=== PATIENT | female | born 2005 | race Caucasian/White ===

== ENCOUNTER 2025-01-14 22:37 | Emergency (ER) | payer SELFPAY ==
--- NOTE | ~2025-01-14 | CT_ITS ---
CLINICAL HISTORY: headache after syncope and head injury CT head without contrast COMPARISON: None FINDINGS: No acute intracranial hemorrhage, extra-axial fluid collection, mass effect, or midline shift. Ventricular system and basilar cisterns are patent. Walkre-white matter differentiation is maintained. No gross orbital abnormality. No suspicious or acute bone lesion. Mastoid air cells and paranasal sinuses are predominantly clear. IMPRESSION: 1. No acute intracranial abnormality. This document has been electronically signed by: Fransisco Mckenzie MD on 01/15/2025 01:13:04
--- NOTE | ~2025-01-14 | XR_ITS ---
CLINICAL HISTORY: cough and fever EXAM: One view chest x-ray COMPARISON: None FINDINGS: Normal cardiac, mediastinal, and hilar contours. Normal heart size. No pleural effusion or pneumothorax. Lungs are clear. No acute bone finding. IMPRESSION: 1. No acute cardiopulmonary process demonstrated. This document has been electronically signed by: Fransisco Mckenzie MD on 01/15/2025 01:09:09
[2025-01-14 22:43] VITALS: BP 112/60; PULSE 105; RESP 16; TEMP 36.7; O2SAT 96; BMI 25.8
--- NOTE | 2025-01-14 22:49 | ECG_ITS ---
Test Reason : SYNCOPE Blood Pressure : */* mmHG Vent. Rate : 95 BPM Atrial Rate : 95 BPM P-R Int : 142 ms QRS Dur : 86 ms QT Int : 358 ms P-R-T Axes : 58 58 56 degrees QTcB Int : 449 ms Normal sinus rhythm Normal ECG No previous ECGs available Referred By: Generic ED Physician Electronically Signed By: Vishnu Sanford
[2025-01-14 23:10] LABS: Hematocrit 39.5 % (37.0-47.0); Hemoglobin 12.8 g/dl (12.0-16.0); Imm Gran Abs Auto 0.09 X10*3/uL (0.00-0.03); Imm Gran Pct Auto 0.6 % (0.0-0.4); Lymphocytes Absolute Auto 1.0 X10*3/uL (1.2-4.9); Mean Corpuscular HGB Conc 32.4 g/dl (31.0-35.0); Mean Corpuscular Hemoglobin 27.7 pg (27.0-33.0); Mean Corpuscular Volume 85.5 fL (80.0-98.0); NRBC Abs Auto 0.000 X10*3/uL (0.0-0.012); NRBC Pct Auto 0.0 /100WBC (0.0-0.2); Platelet Count 344 X10*3/uL (160-400); Red Blood Count 4.62 X10*6/uL (4.20-5.50); White Blood Count 14.9 X10*3/uL (4.8-10.8)
[2025-01-14 23:24] LABS: IDNOW Serial# 6674DD1D; Strep A Nucleic Acid Negative (Negative)
[2025-01-14 23:28] LABS: IDNOW Serial# 152EDE1D; Influenza B2 Negative (Negative)
[2025-01-14 23:29] LABS: COVID-19 Test Negative (Negative); IDNOW Serial# 16C4AD1C
[2025-01-14 23:33] LABS: Alanine Aminotransferase 24 U/L (0-31); Albumin Level 4.3 g/dL (3.5-5.0); Alkaline Phosphatase 78 U/L (39-117); Anion Gap 14 (12-20); Aspartate Amino Transferase 31 U/L (5-31); Blood Urea Nitrogen 14 mg/dL (9-16); Calcium 9.1 mg/dL (8.4-10.2); Carbon Dioxide 22 mmol/L (22-29); Chloride 104 mmol/L (96-108); Creatinine Clr Calc Pharmacy 119.4; Estimated Glomerular Filt Rate > 60; Potassium 3.9 mmol/L (3.3-5.1); Sodium 136 mmol/L (135-145); Total Protein 7.4 g/dL (6.5-8.0)
[2025-01-14 23:36] LABS: Troponin-I High Sensitivity < 2.7 ng/L (<3.5-17.0)
[2025-01-14 23:42] VITALS: BP 107/61; BP 114/73; BP 98/67; PULSE 100
[2025-01-14 23:44] VITALS: BP 107/61; PULSE 100; RESP 18; O2SAT 99
--- NOTE | 2025-01-14 23:48 | ED_ITS ---
HPI - Syncope General Chief Complaint: Syncope Stated Complaint: passed out 1/2 ago/not feeling good all day Time Seen by Provider: 01/14/25 23:21 Source: patient and family Mode of arrival: ambulatory Limitations: no limitations History of Present Illness ED Provider: DR. Monique HPI narrative: a 19-year-old female came in for evaluation after passed out in the kitchen before arrival. Patient was not feeling well all day presented with runny nose, congestion, generalized body ache, sore throat, cough, subjective fever, decreased p.o. intake all day today, patient has been feeling dizzy passed out in the kitchen when she woke up found herself on the ground complaining of right temporal area pain likely struck her head when she fell. Fall was unwitnessed, patient stated was few minutes1. Periventricular white matter hypodensities, No chest pain, no shortness of breath, no abdominal pain, no vaginal bleeding, no chance of being . Related Data Allergies Allergy/AdvReac Type Severity Reaction Status Date / Time No Known Allergies Allergy Verified 01/14/25 22:46 Review of Systems 2 Review of Systems: All other systems are reviewed and are negative Constitutional: Reports as per HPI and Reports no additional constitutional complaints Eyes: Reports as per HPI and Reports no additional eye complaints Reports system reviewed and no additional complaints, except as documented Cardiovascular: Reports as per HPI and Reports no additional cardiovascular complaints Respiratory: Reports as per HPI and Reports no additional respiratory complaints Gastrointestinal: Reports as per HPI and Reports no additional gastrointestinal complaints Genitourinary: Reports no additional female genitourinary complaints Musculoskeletal: Reports no additional musculoskeletal complaints Skin/Breast: Reports system reviewed and no additional complaints, except as docu Psychiatric: Reports no additional psychiatric complaints Endocrine: Reports no additional endocrine complaints Hematologic/Lymphatic: Reports no additional hematologic/lymphatic complaints Allergic/Immunologic: Reports no additional allergic/immunologic complaints Reports system reviewed and no additional complaints, except as documented and Reports Abnormal speech present [facility] Social History Social History Alcohol intake: never Smoked in Last 30 Days: No Use of substances other than those prescribed or required for medical reasons: No Advance Directives: No Do you have a plan to hurt others: No Plan Physical Exam 2 Vital Signs: Vital Signs: Last Vital Signs Temp 98.1 F 01/15/25 00:07 Pulse 89 01/15/25 00:07 Resp 16 01/15/25 00:07 BP 109/69 01/15/25 00:07 Pulse Ox 98 01/15/25 00:07 O2 Del Method Room Air 01/15/25 00:07 BMI result Body Mass Index 25.8 Vital signs have been reviewed and appear to be correct. Blood pressure elevated. Heart rate normal. Respiratory rate normal. Temperature normal. Oxygen saturation normal. Appearance: Alert. Oriented X3. No acute distress. Head: Normal external exam. Normocephalic. Atraumatic. No Antonio signs noted. No raccoon eyes noted Eyes: PERRLA. EOMI. Conjunctiva and sclera normal. Eyelids normal. ENT: TM's Normal. Pharynx normal. Uvula midline. Moist mucous membranes. No trismus noted. No drooling noted. No muffled voice noted. Neck: Normal inspection. Neck supple. FROM. No adenopathy. Thyroid Normal. No meningeal signs. No neck mass noted. CVS: Normal heart rate and rhythm. Heart sound normal. No murmurs noted. Pulses normal throughout. Respiratory: No respiratory distress. Painless inspiration. Breath sounds normal. No wheezes/rales/rhonchi noted. Chest nontender. No accessory muscle usage noted or decreased air movement noted. Abdomen: Soft and nontender. Bowel sounds normal in all 4 quadrants. No distention noted. No organomegaly noted. No visible injury noted. Back: No CVA tenderness. Full range of motion noted. Skin: Skin warm and dry. Normal skin color. Normal skin turgor. No rashes/lesions/lacerations noted. Extremities: No lower extremity edema. Extremities exhibit normal range of motion. Extremities nontender. Neuro: Oriented X 3. Cranial nerve exam: II-XII are grossly intact No motor deficit. No sensory deficit. Reflexes normal. Course Reevaluation(s) Reevaluation #1: patient feels better after IV hydration, unremarkable head CT, unremarkable chest x-ray, leukocytosis possibly reactionary to stress and viral syndrome. Patient was encouraged to drink plenty of fluids and keep hydrated. Time: 01:24 Medications Administered Discontinued Medications Generic Name Dose Route Start Last Admin Trade Name Freq PRN Reason Stop Dose Admin Lactated Ringer's 1,000 mls @ 999 mls/hr 01/14/25 23:45 01/15/25 00:23 Lr IV 01/15/25 00:45 999 mls/hr .Q1H1M [facility] Administration Medical Decision Making Differential Diagnosis Differential Diagnoses: The differential diagnosis associated with the presentation includes (Viral syndrome, dehydration, pneumonia, pneumothorax, strep pharyngitis, influenza, COVID-19 infection, severe anemia, intracranial bleed.) Admission/Observation Consideration of admission/observation: Escalation of care including admission/observation considered Lab Data MDM Lab Attestation statement: I reviewed the patient's lab results. 01/14/25 22:58 01/14/25 22:58 Labs: Lab Results 01/14/25 01/14/25 Range/Units 22:56 22:58 WBC 14.9 H (4.8-10.8) X10*3/uL RBC 4.62 (4.20-5.50) X10*6/uL Hgb 12.8 (12.0-16.0) g/dl Hct 39.5 (37.0-47.0) % MCV 85.5 (80.0-98.0) fL MCH 27.7 (27.0-33.0) pg MCHC 32.4 (31.0-35.0) g/dl RDW 12.5 (11.0-16.0) % Plt Count 344 (160-400) X10*3/uL MPV 8.5 L (9.4-12.3) fL Immature Gran % (Auto) 0.6 H (0.0-0.4) % Neut % (Auto) 85.5 H (45-73) % Lymph % (Auto) 6.7 L (20-40) % [place] % (Auto) 6.8 (2-11) % Eos % (Auto) 0.1 (0-4) % Baso % (Auto) 0.3 (0-2) % Lymph # (Auto) 1.0 L (1.2-4.9) X10*3/uL [place] # (Auto) 1.0 (0.1-1.2) X10*3/uL Eos # (Auto) 0.0 (0.0-0.4) X10*3/uL Baso # (Auto) 0.0 (0.0-0.2) X10*3/uL Abs Immat Gran (auto) 0.09 H (0.00-0.03) X10*3/uL Absolute Neuts (auto) 12.8 H (2.0-8.3) x10*3/uL Absolute Nucleated RBC 0.000 (0.0-0.012) X10*3/uL Nucleated RBC % (auto) 0.0 (0.0-0.2) /100WBC Sodium 136 (135-145) mmol/L Potassium 3.9 (3.3-5.1) mmol/L Chloride 104 (96-108) mmol/L Carbon Dioxide 22 (22-29) mmol/L Anion Gap 14 (12-20) BUN 14 (9-16) mg/dL Creatinine 0.80 (0.5-1.4) mg/dL Estim Creat Clear Calc 119.4 Estimated GFR > 60 Random Glucose 109 (60-115) mg/dL Calcium 9.1 (8.4-10.2) mg/dL Total Bilirubin 0.4 (0.0-1.0) mg/dL AST 31 (5-31) U/L ALT 24 (0-31) U/L Alkaline Phosphatase 78 (39-117) U/L Troponin I High Sens < 2.7 (<3.5-17.0) ng/L Total Protein 7.4 (6.5-8.0) g/dL Albumin 4.3 (3.5-5.0) g/dL Beta HCG, Quant < 2 mIU/mL COVID-19 (JAIR) Negative (Negative) COVID-19 Clin Com See Note Influenza Type A ([facility]) Negative (Negative) Influenza Type B ([facility]) Negative (Negative) Influenza A & B Note See Note S. pyogenes GrpA [facility] Negative (Negative) Independent Interpretation I performed an independent interpretation of an: EKG ( normal sinus rhythm at 95 beats per minutes, normal intervals, no ST-T changes.), Plain X-Ray ( Chest: No acute intrathoracic pathology.) and CT Scan ( Head: No acute intracranial pathology) Radiology Impression Discussion of test interpretation with radiology: I have reviewed the radiologist's reading. Discharge Plan Discharge Clinical Impression: Dehydration, Syncope due to orthostatic hypotension, Acute viral syndrome Patient Disposition: Home, Self-Care Instructions: Dehydration (ED), Viral Syndrome (ED) Additional Instructions: keep well hydrated and encouraged to drink plenty of fluids. Print Language: Korean
[2025-01-14 23:49] VITALS: PULSE 87
[2025-01-15 00:07] VITALS: BP 109/69; PULSE 89; RESP 16; TEMP 36.7; O2SAT 98
[2025-01-15] MEDS: Lactated Ringers 1,000 ML 999 ML IV (00:23)
[2025-01-15 01:59] VITALS: BP 118/69; PULSE 84; RESP 15; TEMP 36.5; O2SAT 97
== END 2025-01-15 02:00 | disposition home or self-care (01) ==
PROVIDERS: Emergency Provider Emergency Medicine
DX: E86.0 Dehydration (principal); I95.1 Orthostatic hypotension; B34.9 Viral infection, unspecified
CPT/HCPCS: 36415; 70450; 71045; 80053; 84484; 84702; 85025; 87502; 87635; 87651; 93005; 96360; 99285; J7120

== ENCOUNTER → 2025-01-14 22:49 | Outpatient (BNV) | payer SELFPAY | PROVIDERS: Emergency Provider Emergency Medicine; Visit Provider Internal Medicine Cardiovascular Disease | DX: R55 Syncope and collapse (principal) | CPT/HCPCS: 93010 ==

== ENCOUNTER → 2025-01-15 | Outpatient (BNV) | payer SELFPAY | PROVIDERS: Emergency Provider Emergency Medicine; Visit Provider Radiology Diagnostic Radiology | DX: R51.9 Headache, unspecified (principal); R55 Syncope and collapse; S09.90XA Unspecified injury of head, initial encounter; R05.9 Cough, unspecified; R50.9 Fever, unspecified | CPT/HCPCS: 70450; 71045 ==